=== PATIENT | female | born 1995 | race Caucasian/White ===

== ENCOUNTER 2019-02-27 11:23 | Emergency (ER) | payer MEDICAID ==
--- NOTE | 2019-02-27 11:33 | Emergency Department Report ---
Blank Doc - Documentation Documentation: This is a 23-year-old female that presents with URI symptoms. This initial assessment/diagnostic orders/clinical plan/treatment(s) is/are subject to change based on patient's health status, clinical progression and re- assessment by fellow clinical providers in the ED. Further treatment and workup at subsequent clinical providers discretion. Patient/guardians urged not to elope from the ED as their condition may be serious if not clinically assessed and managed. Initial orders include: 1- Patient sent to [facility] for further evaluation and treatment 2- CXR
[2019-02-27] MEDS ORDERED: SOLU-Medrol IM ONE (12:16)
[2019-02-27] MEDS ORDERED: PROVENTIL IH ONE (12:16)
--- NOTE | 2019-02-27 12:17 | Emergency Department Report ---
Minor Respiratory - HPI Chief Complaint: Upper Respiratory Infection Stated Complaint: CONGESTION/COUGH/ABD PAIN Time Seen by Provider: 02/27/19 11:32 Duration: 3 Days Pain Location: Chest Severity: mild Minor Respiratory: Yes Rhinorrhea, Yes Able to Tolerate Fluids, Yes Cough, No Sore Throat, No Ear Pain, No Sick Contacts, No Hemoptysis, No Chest Pain, No Shortness of Breath, No Fever Other History: She is 23-year-old female who comes into the ER with cough cold and congestion for 3 days. She reports fever at home but none in the ER ED Review of Systems ROS: Stated complaint: CONGESTION/COUGH/ABD PAIN Other details as noted in HPI Comment: All other systems reviewed and negative ED Past Medical Hx - Past Medical History Previous Medical History?: No Hx Hypertension: No Hx Heart Attack/AMI: No Hx Congestive Heart Failure: No Hx Diabetes: No Hx Deep Vein Thrombosis: No Hx Liver Disease: No Hx Renal Disease: No Hx Sickle Cell Disease: No Hx Seizures: No Hx Asthma: No Hx COPD: No Hx HIV: No - Surgical History Past Surgical History?: No - Family History Family history: no significant - Social History Smoking Status: Never Smoker Substance Use Type: None - Medications Home Medications: Home Medications Medication Instructions Recorded Confirmed Last Taken Type Vits96/Iron Fum/Folic 1 tab PO DAILY 06/21/14 03/20/16 08/25/14 08:00 History [ Tablet] Ferrous Sulfate [Feosol 325 MG tab] 325 mg PO TID PRN #120 tablet 08/27/14 03/20/16 Unknown Rx Ibuprofen [Motrin 600 MG tab] 600 mg PO Q6H PRN #30 tablet 08/27/14 03/20/16 Unknown Rx Docusate Sodium [Colace] 100 mg PO BID PRN #60 capsule 03/21/16 Unknown Rx Ferrous Sulfate [Feosol 325 MG tab] 325 mg PO TID #90 tablet 03/21/16 Unknown Rx Ibuprofen [Motrin 600 MG tab] 600 mg PO Q6HR PRN #30 tablet 03/21/16 Unknown Rx Vit-Fe Fumar-FA [ 1 each PO QDAY #30 tablet 03/21/16 Unknown Rx Vitamin] oxyCODONE /ACETAMINOPHEN [Percocet 1 tab PO Q6HR PRN #30 tablet 03/21/16 Unknown Rx 5/325] Azithromycin [Zithromax Z-BENEDICT] 250 mg PO DAILY #6 tablet 02/27/19 Unknown Rx Cetirizine HCl [ZyrTEC] 10 mg PO DAILY #30 capsule 02/27/19 Unknown Rx Fluticasone [Flonase] 1 spray NS QDAY #1 bottle 02/27/19 Unknown Rx predniSONE [Deltasone] 20 mg PO DAILY #5 tablet 02/27/19 Unknown Rx Minor Respiratory Exam - Exam General: Vital signs noted. No distress. Alert and acting appropriately. HEENT: Yes Pharyngeal Erythema, Yes Moist Mucous Membranes, Yes Rhinorrhea, No Pharyngeal Exudates, No Conjuctival Injection, No Frontal Tenderness, No Maxillary Tenderness Ear: Neither TM Bulge, Neither TM Erythema, Neither EAC Pain, Neither EAC Discharge Neck: Yes Supple, No Adenopathy Lungs: Yes Good Air Exchange, Yes Cough, No Wheezes, No Ronchi, No Stridor, No Labored Respirations, No Retractions, No Use of Accessory Muscles, No Other Abnormal Lung Sounds Heart: Yes Regular, No Murmur Abdomen: Yes Normal Bowel Sounds, No Tenderness, No Peritoneal Signs Skin: No Rash, No Edema Neurologic: Alert and oriented, no deficits. Musculoskeletal: Unremarkable. ED Course Vital Signs 02/27/19 11:32 Temperature 98.6 F Pulse Rate 105 H Respiratory 16 Rate Blood Pressure 134/86 O2 Sat by Pulse 97 Oximetry ED Medical Decision Making - Radiology Data Radiology results: report reviewed, image reviewed - Medical Decision Making xray without consolidation medicated in ER dc home with dc plan of care Lab Results 02/27/19 Range/Units 11:57 Urine Color Yellow (Yellow) Urine Turbidity Slightly-cloudy (Clear) Urine pH 6.0 (5.0-7.0) Ur Specific [place] 1.031 H (1.003-1.030) Urine Protein <15 mg/dl (Negative) mg/dL Urine Glucose (UA) Neg (Negative) mg/dL Urine Ketones Tr (Negative) mg/dL Urine Blood Neg (Negative) Urine Nitrite Neg (Negative) Urine Bilirubin Neg (Negative) Urine Urobilinogen 2.0 (<2.0) mg/dL Ur Leukocyte Esterase Neg (Negative) Urine WBC (Auto) < 1.0 (0.0-6.0) /HPF Urine RBC (Auto) 1.0 (0.0-6.0) /HPF U Epithel Cells (Auto) 2.0 (0-13.0) /HPF Urine HCG, Qual Negative (Negative) Vital Signs 02/27/19 02/27/19 02/27/19 11:32 13:46 14:24 Temperature 98.6 F Pulse Rate 105 H 114 H Pulse Rate [ 89 Bilateral] Respiratory 16 20 Rate Respiratory 20 Rate [Bilateral ] Blood Pressure 134/86 Blood Pressure 154/91 [Right] O2 Sat by Pulse 97 99 Oximetry Critical care attestation.: If time is entered above; I have spent that time in minutes in the direct care of this critically ill patient, excluding procedure time. ED Disposition Clinical Impression: URTI (acute upper respiratory infection), Bronchitis Disposition: TO HOME OR SELFCARE Is pt being admited?: No Does the pt Need Aspirin: No Condition: Stable Instructions: Upper Respiratory Infection (ED), Chronic Bronchitis (ED) Additional Instructions: DIET TOLERATED MEDS ORDERED TODAY IN ER FOLLOW INSTRUCTIONS ON THE BOTTLE FOLLOW UP PCP WITHIN 48 HOURS TO ENSURE YOU ARE GETTING BETTER ACTIVITY TOLERATED MOTRIN OR TYLENOL FOR PAIN OR FEVER RETURN TO THE ER FOR WORSENING SYMPTOMS NOT RELIEVED BY YOUR MEDICATIONS. Prescriptions: predniSONE [Deltasone] 20 mg PO DAILY #5 tablet Fluticasone [Flonase] 1 spray NS QDAY #1 bottle Azithromycin [Zithromax Z-BENEDICT] 250 mg PO DAILY #6 tablet Cetirizine HCl [ZyrTEC] 10 mg PO DAILY #30 capsule Referrals: [facility] [Other] - 3-5 Days Forms: Work/School Release Form(ED) Time of Disposition: 14:08
[2019-02-27 12:38] LABS: Bilirubin,Urine NEG (Negative); Blood,Urine NEG (Negative); Color,Urine Yellow (Yellow); Protein,Urine <15 mg/dL mg/dL (Negative)
[2019-02-27 12:41] LABS: WBC,Urine < 1.0 /HPF (0.0-6.0)
[2019-02-27 12:42] LABS: HCG Qualitative,Urine Negative (Negative)
--- NOTE | 2019-02-27 14:10 | XRay Report ---
CHEST 2 VIEWS INDICATION: Shortness of breath. COMPARISON: None similar. FINDINGS: PA and lateral chest radiographs demonstrate limited inspiration with mild exaggerated cardiomediastinal silhouette; slight cardiomegaly not entirely excluded. No pleural effusions or CHF. Intact bones. CONCLUSION: Suboptimal inspiration with exaggerated heart size, as described. Please correlate. Thank you for the opportunity to participate in this patient's care.
[2019-02-27 14:25] VITALS: BP 154/91
== END 2019-02-27 14:24 | disposition home or self-care (01) ==
LOC: ED 11:23
DX: J06.9 Acute upper respiratory infection, unspecified (principal); J40 Bronchitis, not specified as acute or chronic
CPT/HCPCS: 71046; 81001; 81025; 94640; 96372; 99284; J2930

== ENCOUNTER 2019-06-07 09:33 | Emergency (ER) | payer MEDICAID ==
[2019-06-07 09:46] VITALS: BP 129/86
[2019-06-07 10:16] LABS: Basophils # (Auto) 0.1 K/mm3 (0.0-0.1); Basophils % (Auto) 0.6 % (0.0-1.8); Eosinophils # (Auto) 0.1 K/mm3 (0.0-0.4); Eosinophils % (Auto) 1.3 % (0.0-4.3); Hemoglobin 13.6 gm/dl (10.1-14.3); Lymphocytes # (Auto) 2.3 K/mm3 (1.2-5.4); Lymphocytes % (Auto) 22.3 % (13.4-35.0); Mean Corpuscular HGB Conc 34 % (30-34); Mean Corpuscular Volume 90 fl (79-97); Monocytes # (Auto) 0.5 K/mm3 (0.0-0.8); Monocytes % (Auto) 4.9 % (0.0-7.3); Platelet Count 204 K/mm3 (140-440); Red Blood Count 4.45 M/mm3 (3.65-5.03); Red Cell Distribution Width 13.2 % (13.2-15.2)
[2019-06-07 10:27] LABS: Alanine Aminotransferase 28 units/L (7-56); Albumin 3.6 g/dL (3.9-5); BUN/Creatinine Ratio 23; Blood Urea Nitrogen 7 mg/dL (7-17); Calcium 8.7 mg/dL (8.4-10.2); Hemolysis Index 7
--- NOTE | 2019-06-07 11:26 | Emergency Department Report ---
HPI - General Chief Complaint: Abdominal Pain Time Seen by Provider: 06/07/19 11:07 - HPI HPI: 23-year-old female presents to the emergency department with a complaint of some lower abdominal pain, nausea and vomiting, while . The patient is about 17 weeks and with this she is . She denies any vaginal bleeding, dysuria, vaginal discharge. She has not taken anything for her symptoms prior to presentation. No recent travel or sick contacts. 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 ED Past Medical Hx - Past Medical History Hx Hypertension: No Hx Heart Attack/AMI: No Hx Congestive Heart Failure: No Hx Diabetes: No Hx Deep Vein Thrombosis: No Hx Liver Disease: No Hx Renal Disease: No Hx Sickle Cell Disease: No Hx Seizures: No Hx Asthma: No Hx COPD: No Hx HIV: No - Social History Smoking Status: Never Smoker Substance Use Type: None - Medications Home Medications: Home Medications Medication Instructions Recorded Confirmed Last Taken Type Vits96/Iron Fum/Folic 1 tab PO DAILY 06/21/14 03/20/16 08/25/14 08:00 History [ Tablet] Ferrous Sulfate [Feosol 325 MG tab] 325 mg PO TID PRN #120 tablet 08/27/14 03/20/16 Unknown Rx Ibuprofen [Motrin 600 MG tab] 600 mg PO Q6H PRN #30 tablet 08/27/14 03/20/16 Unknown Rx Docusate Sodium [Colace] 100 mg PO BID PRN #60 capsule 03/21/16 Unknown Rx Ferrous Sulfate [Feosol 325 MG tab] 325 mg PO TID #90 tablet 03/21/16 Unknown Rx Ibuprofen [Motrin 600 MG tab] 600 mg PO Q6HR PRN #30 tablet 03/21/16 Unknown Rx Vit-Fe Fumar-FA [ 1 each PO QDAY #30 tablet 03/21/16 Unknown Rx Vitamin] oxyCODONE /ACETAMINOPHEN [Percocet 1 tab PO Q6HR PRN #30 tablet 03/21/16 Unknown Rx 5/325] Azithromycin [Zithromax Z-BENEDICT] 250 mg PO DAILY #6 tablet 02/27/19 Unknown Rx Cetirizine HCl [ZyrTEC] 10 mg PO DAILY #30 capsule 02/27/19 Unknown Rx Fluticasone [Flonase] 1 spray NS QDAY #1 bottle 02/27/19 Unknown Rx predniSONE [Deltasone] 20 mg PO DAILY #5 tablet 02/27/19 Unknown Rx ED Review of Systems ROS: Stated complaint: 17WKS /VOMITING/STOMACH PAIN Other details as noted in HPI Comment: All other systems reviewed and negative Constitutional: denies: chills, fever Respiratory: denies: cough, shortness of breath Cardiovascular: denies: chest pain, palpitations Gastrointestinal: abdominal pain, nausea, vomiting Genitourinary: denies: dysuria, discharge Musculoskeletal: denies: back pain, joint swelling Skin: denies: rash, lesions Neurological: denies: headache, weakness Physical Exam - Physical Exam Vital Signs: Vital Signs 06/07/19 09:45 Temperature 98.3 F Pulse Rate 96 H Respiratory 18 Rate Blood Pressure 129/86 O2 Sat by Pulse 97 Oximetry Physical Exam: GENERAL: The patient is well-developed well-nourished. HENT: Normocephalic. Atraumatic. Patient has moist mucous membranes. EYES: Extraocular motions are intact. NECK: Supple. Trachea is midline. CHEST/LUNGS: Clear to auscultation. There is no respiratory distress noted. HEART/CARDIOVASCULAR: Regular. There is no tachycardia. There is no murmur. ABDOMEN: Abdomen is soft. Mild lower abdominal tenderness to palpation. No guarding. Patient has normal bowel sounds. SKIN: Skin is warm and dry. NEURO: The patient is awake, alert, and oriented. The patient is cooperative. The patient has no focal neurologic deficits. The patient has normal speech. MUSCULOSKELETAL: There is no tenderness or deformity. There is no evidence of acute injury. ED Course Vital Signs 06/07/19 09:45 Temperature 98.3 F Pulse Rate 96 H Respiratory 18 Rate Blood Pressure 129/86 O2 Sat by Pulse 97 Oximetry ED Medical Decision Making - Lab Data Result diagrams: 06/07/19 09:57 06/07/19 09:57 - Radiology Data Radiology results: report reviewed OB ULTRASOUND >= 14 WEEKS FETUS INDICATION: Abdominal pain during TECHNIQUE: Transabdominal ultrasound imaging. COMPARISON: None FINDINGS: A single gestation intrauterine is present with breech presentation. The placenta is posterior, grade 1 and free of the cervical os. heart tones measure 147 bpm. Amniotic fluid volume is qualitatively normal. SHABBIR was not measured. anatomical survey was not performed. Biparietal diameter is 3.4 cm which equals 16 weeks 3 days. Head circumference is 14.0 cm which equals 17 weeks 2 days. Abdominal circumference is 11.1 cm which equals 17 weeks 0 days. Femur length is 2.5 cm which equals 17 weeks 4 days. Overall estimated sonographic age is 17 weeks 1 day. EDC: 11/14/2019. HC/AC ratio: 1.25 Cephalic index: 76.6 Estimated weight 188 g +/- 20 8 g. 34th percentile. Additional findings: Multiple shadowing gallstones are noted in the gallbladder. No abnormal dilatation. IMPRESSION: Viable, single intrauterine as outlined above. No acute abnormality is identified. Incidental finding of gallstones. - Medical Decision Making This patient presents to the emergency department with some lower abdominal discomfort, nausea and vomiting while . Labs have been unremarkable including CBC, metabolic panel and urinalysis. The obstetric ultrasound came back showing a live intrauterine at about 17 weeks. There is also be incidental finding of gallstones. While I do not believe that the gallstones are the cause of her lower abdominal pain, it is a possibility, and it certainly can add to her nausea and vomiting. She was given a dose of Reglan which she took orally and was able to keep down. There has been no further signs of vomiting while in the emergency department. No signs of any significant clinical dehydration on examination or with her labs. She was able to pass an oral challenge. For all these reasons, the patient appears safe for discharge home with son. 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 - Differential Diagnosis , hyperemesis gravidarum, UTI, fibroids Critical Care Time: No Critical care attestation.: If time is entered above; I have spent that time in minutes in the direct care of this critically ill patient, excluding procedure time. ED Disposition Clinical Impression: Qualifiers: Weeks of gestation: 17 weeks Qualified Code(s): Z3A.17 - 17 weeks gestation of Nausea & vomiting Qualifiers: Vomiting type: unspecified Vomiting Intractability: non-intractable Qualified Code(s): R11.2 - Nausea with vomiting, unspecified Abdominal pain during Qualifiers: Trimester: second trimester Qualified Code(s): O26.892 - Other specified related conditions, second trimester Cholelithiasis Qualifiers: Cholelithiasis location: gallbladder Cholecystitis presence: without cholecystitis Biliary obstruction: without biliary obstruction Qualified Code(s): K80.20 - Calculus of gallbladder without cholecystitis without obstruction Disposition: TO HOME OR SELFCARE Is pt being admited?: No Condition: Stable Instructions: (ED), Cholelithiasis (ED), Acute Nausea and Vomiting (ED), Abdominal Pain (ED) Additional Instructions: Please follow-up with your primary care physician and INSTRUMENT ENGINEER in the next few day s. Increase your oral rehydration. Return to the emergency Department with any worsening of her symptoms, development of any vaginal bleeding, new or sharp abdominal or pelvic pains, inability to stay hydrated secondary to vomiting, with any acute distress. Referrals: DEVAN JOHN MD [Primary Care Provider] - 2-3 Days [facility] [Provider Group] - 2-3 Days Forms: Work/School Release Form(ED) Time of Disposition: 13:05
[2019-06-07] MEDS ORDERED: REGLAN PO ONE (11:39)
[2019-06-07 12:15] LABS: Bilirubin,Urine NEG (Negative); Blood,Urine NEG (Negative); Color,Urine Yellow (Yellow); Mucus,Urine FEW /HPF; Protein,Urine <15 mg/dL mg/dL (Negative); Urobilinogen,Urine < 2.0 mg/dL (<2.0)
--- NOTE | 2019-06-07 12:19 | Ultrasound Report ---
OB ULTRASOUND >= 14 WEEKS FETUS INDICATION: Abdominal pain during TECHNIQUE: Transabdominal ultrasound imaging. COMPARISON: None FINDINGS: A single gestation intrauterine is present with breech presentation. The placenta is engineering technical writer ior, grade 1 and free of the cervical os. heart tones measure 147 bpm. Amniotic fluid volume is qualitatively normal. SHABBIR was not measured. anatomical survey was not performed. Biparietal diameter is 3.4 cm which equals 16 weeks 3 days. Head circumference is 14.0 cm which equals 17 weeks 2 days. Abdominal circumference is 11.1 cm which equals 17 weeks 0 days. Femur length is 2.5 cm which equals 17 weeks 4 days. Overall estimated sonographic age is 17 weeks 1 day. EDC: 11/14/2019. HC/AC ratio: 1.25 Cephalic index: 76.6 Estimated weight 188 g +/- 20 8 g. 34th percentile. Additional findings: Multiple shadowing gallstones are noted in the gallbladder. No abnormal dilatati on. IMPRESSION: Viable, single intrauterine as outlined above. No acute abnormality is identified. Incidental finding of gallstones. Signer Name: Misael Bella Jr, MD Signed: 06/07/2019 12:15 PM Workstation Name: [id number]
== END 2019-06-07 13:23 | disposition home or self-care (01) ==
LOC: ED 09:33
DX: O99.612 Diseases of the digestive system complicating pregnancy, second trimester (principal); K80.20 Calculus of gallbladder without cholecystitis without obstruction; O21.8 Other vomiting complicating pregnancy; Z3A.17 17 weeks gestation of pregnancy; Z79.899 Other long term (current) drug therapy
CPT/HCPCS: 36415; 76805; 80053; 81001; 84702; 85025; 99284

== ENCOUNTER 2019-08-23 19:46 | Outpatient (CLI) | payer MEDICAID ==
[2019-08-23] MEDS ORDERED: LACTATED RINGERS 500 ML IV ONE (20:12)
[2019-08-23] MEDS ORDERED: ONDANSETRON 4 MG/2 ML INJ IV STA (20:42)
[2019-08-23 20:51] VITALS: BP 115/81
[2019-08-23] MEDS ORDERED: FAMOTIDINE 20 MG/2 ML INJ IV STA (21:27)
== END 2019-08-23 22:15 | disposition home or self-care (01) ==
LOC: TRG 19:46
PROVIDERS: ATTEND Obstetrics & Gynecology
DX: O21.2 Late vomiting of pregnancy (principal); O26.893 Other specified pregnancy related conditions, third trimester; R10.9 Unspecified abdominal pain; Z3A.28 28 weeks gestation of pregnancy
CPT/HCPCS: 59025; 96374; 96375; J2405; J7120; 96360

== ENCOUNTER 2019-10-04 10:25 | Outpatient (CLI) | payer MEDICAID ==
[2019-10-04] MEDS ORDERED: LACTATED RINGERS 1,000 ML IV SCH (12:00)
[2019-10-04 12:09] LABS: Hematocrit 32.5 % (30.3-42.9); Hemoglobin 10.9 gm/dl (10.1-14.3); Mean Corpuscular HGB Conc 33 % (30-34); Mean Corpuscular Volume 80 fl (79-97); Platelet Count 254 K/mm3 (140-440); Red Blood Count 4.08 M/mm3 (3.65-5.03); Red Cell Distribution Width 15.5 % (13.2-15.2)
[2019-10-04] MEDS ORDERED: ONDANSETRON 4 MG/2 ML INJ IV ONE (12:14)
[2019-10-04 12:30] LABS: Alanine Aminotransferase 10 units/L (7-56); Uric Acid 4.4 mg/dL (3.5-7.6)
[2019-10-04] MEDS ORDERED: D5W/LACTATED RINGERS 1,000 ML IV SCH (13:00)
[2019-10-04 13:33] LABS: Bacteria,Urine 1+ /HPF (Negative); Bilirubin,Urine NEG (Negative); Blood,Urine SM (Negative); Color,Urine Straw (Yellow); Protein,Urine <15 mg/dL mg/dL (Negative); Urobilinogen,Urine < 2.0 mg/dL (<2.0)
[2019-10-04 13:45] VITALS: BP 121/67
== END 2019-10-04 15:21 | disposition home or self-care (01) ==
LOC: TRG 10:25
PROVIDERS: ATTEND Obstetrics & Gynecology
DX: O21.2 Late vomiting of pregnancy (principal); O26.893 Other specified pregnancy related conditions, third trimester; R19.7 Diarrhea, unspecified; O47.03 False labor before 37 completed weeks of gestation, third trimester; Z3A.34 34 weeks gestation of pregnancy
CPT/HCPCS: 36415; 59025; 81001; 82565; 83615; 84450; 84460; 84550; 85027; 96361; 96374; J2405; J7120; J7121; 96360

== ENCOUNTER 2019-10-15 12:55 | Inpatient (IN) | payer MEDICAID ==
--- NOTE | 2019-10-15 14:28 | Ultrasound Report ---
Biophysical profile INDICATION: Decreased movement COMPARISON: None FINDINGS: breathing movement: 0/2 movement: 0/2 posture and tone: 2/2 Qualitative amniotic fluid volume: 2/2 IMPRESSION: Total score for biophysical profile is 4/8 heart rate is 144 bpm Signer Name: Bennett Helm MD Signed: 10/15/2019 2:23 PM Workstation Name: [id number]
[2019-10-15] MEDS ORDERED: LACTATED RINGERS 1,000 ML ONE (14:52)
[2019-10-15] MEDS ORDERED: MINERAL OIL 30 ML ORAL LIQD PO PRN (15:13)
[2019-10-15] MEDS ORDERED: ePHEDrine SULFATE 50 MG/1 ML INJ IV PRN (15:13)
[2019-10-15] MEDS ORDERED: TERBUTALINE 1 MG/1 ML INJ IVP PRN (15:13)
[2019-10-15] MEDS ORDERED: TERBUTALINE 1 MG/1 ML INJ SUB-Q PRN (15:13)
[2019-10-15] MEDS ORDERED: LIDOCAINE (2%) 20 MG/1 ML VIAL 20 ML MDV INFILTRATI ONE (15:13)
[2019-10-15 15:59] LABS: Hematocrit 32.8 % (30.3-42.9); Hemoglobin 10.7 gm/dl (10.1-14.3); Mean Corpuscular HGB Conc 33 % (30-34); Mean Corpuscular Volume 78 fl (79-97); Platelet Count 263 K/mm3 (140-440); Red Cell Distribution Width 16.3 % (13.2-15.2)
[2019-10-15] MEDS ORDERED: OXYTOCIN 20 UNIT/1000ML DRIP 20 UNITS/1,000 ML BAG IV SCH (16:00)
[2019-10-15] MEDS: BETAMET ACET/BETAMET NA PH 6 MG/ML INJ 5 ML MDV IM SCH (16:34)
--- NOTE | 2019-10-15 19:52 | History and Physical Report ---
History of Present Illness Date of examination: 10/15/19 Date of admission: 10/15/19 12:56 Chief complaint: decreased movement History of present illness: Pt is a 24 year old KATINA 11/12/19 at 36w0d presents with complaint of decreased movement since last night. She denies vaginal bleeding or leakage of fluid. She has had care at [facility] [facility] with comanagement by [facility] since 13 wks complicated by morbid obesity, cholelithiasis, h/o gestational hypertension on low dose aspirin daily. Her GBS status is unknown. Past History Past Medical History: no pertinent history Past Surgical History: no surgical history POLE CLIMBER History: abnormal PAP smear Family/Genetic History: diabetes Social history: no significant social history - Obstetrical History Expected Date of Delivery: 11/12/19 Actual Gestation: 36 Week(s) 0 Day(s) : 4 Para: 3 Hx # Term Pregnancies: 3 Number of Pregnancies: 0 Spontaneous Abortions: 0 Induced : 0 Number of Living Children: 3 Medications and Allergies Allergies Allergy/AdvReac Type Severity Reaction Status Date / Time No Known Allergies Allergy Verified 06/07/19 09:34 Home Medications Medication Instructions Recorded Confirmed Last Taken Type Vits96/Iron Fum/Folic 1 tab PO DAILY 06/21/14 03/20/16 08/25/14 08:00 History [ Tablet] Ferrous Sulfate [Feosol 325 MG tab] 325 mg PO TID PRN #120 tablet 08/27/14 03/20/16 Unknown Rx Ibuprofen [Motrin 600 MG tab] 600 mg PO Q6H PRN #30 tablet 08/27/14 03/20/16 Unknown Rx Docusate Sodium [Colace] 100 mg PO BID PRN #60 capsule 03/21/16 Unknown Rx Ferrous Sulfate [Feosol 325 MG tab] 325 mg PO TID #90 tablet 03/21/16 Unknown Rx Ibuprofen [Motrin 600 MG tab] 600 mg PO Q6HR PRN #30 tablet 03/21/16 Unknown Rx Vit-Fe Fumar-FA [ 1 each PO QDAY #30 tablet 03/21/16 Unknown Rx Vitamin] oxyCODONE /ACETAMINOPHEN [Percocet 1 tab PO Q6HR PRN #30 tablet 03/21/16 Unknown Rx 5/325] Azithromycin [Zithromax Z-BENEDICT] 250 mg PO DAILY #6 tablet 02/27/19 Unknown Rx Cetirizine HCl [ZyrTEC] 10 mg PO DAILY #30 capsule 02/27/19 Unknown Rx Fluticasone [Flonase] 1 spray NS QDAY #1 bottle 02/27/19 Unknown Rx predniSONE [Deltasone] 20 mg PO DAILY #5 tablet 02/27/19 Unknown Rx Active Meds: Active Medications Betamethasone Acet/Betameth SodPhos (Celestone Soluspan) 12 mg IM Q24H KEYONA Stop: 10/16/19 16:01 Last Admin: 10/15/19 16:34 Dose: 12 mg Documented by: Ephedrine Sulfate (Ephedrine Sulfate) 10 mg IV Q2M PRN PRN Reason: Hypotension Oxytocin/Sodium Chloride (Pitocin/Ns 20 Unit/1000ml Drip) 20 units in 1,000 mls @ 125 mls/hr IV DIRECT KEYONA Lactated Ringer's (Lactated Ringers) 1,000 mls @ 125 mls/hr IV DIRECT KEYONA Mineral Oil (Mineral Oil) 30 ml PO QHS PRN PRN Reason: Constipation Terbutaline Sulfate (Brethine) 0.25 mg SUB-Q ONCE PRN PRN Reason: Hyperstimulation/Hypertonicity Terbutaline Sulfate (Brethine) 0.25 mg IVP ONCE PRN PRN Reason: Hyperstimulation/Hypertonicity Review of Systems All systems: negative - Vital Signs Vital signs: Vital Signs Pulse Pulse Ox 123 H 99 10/15/19 13:07 10/15/19 13:07 Temp Pulse Resp BP Pulse Ox 98.2 F 103 H 12 130/76 96 10/15/19 13:14 10/15/19 19:46 10/15/19 19:20 10/15/19 19:22 10/15/19 19:46 - Physical Exam Breasts: Positive: deferred Cardiovascular: Regular rate Lungs: Positive: Clear to auscultation Abdomen: Positive: soft (obese, gravid) Uterus: Positive: enlarged (gravid ) Extremities: Positive: edema (trace) - Obstetrical FHR: auscultation normal Cervical Dilatation: 1 Cervical Effacement Percentage: 40 station: -4 Uterine Contraction Pattern: Absent Uterine Tone Measurement Phase: Resting Results Result Diagrams: 10/15/19 15:20 Abnormal lab results 10/15/19 Range/Units 15:20 WBC 11.3 H (4.5-11.0) K/mm3 MCV 78 L (79-97) fl MCH 26 L (28-32) pg RDW 16.3 H (13.2-15.2) % All other labs normal. Assessment and Plan A: IUP at 36w0d Decreased movement BPP 02/04 (04/08 with NST) Gestational HTN Cholelithiasis Morbid Obesity GBS Unknown P: Admit to antepartum service Continuous monitoring Repeat BPP in 24 hrs per MFM director of alumni relations MFM consult in AM Betamethasone course
[2019-10-15] MEDS: LACTATED RINGERS 1,000 ML IV SCH (22:27)
[2019-10-16] MEDS: LACTATED RINGERS 1,000 ML IV SCH ×2 (06:24→14:49)
--- NOTE | 2019-10-16 08:21 | Progress Note ---
Assessment and Plan A: IUP at 36w1d Decreased movement BPP 02/04 (04/08 with NST) Gestational HTN Cholelithiasis Morbid Obesity GBS Unknown P: Continuous monitoring Repeat BPP today by 1p MFM consult in AM Betamethasone course Subjective - Subjective Date of service: 10/16/19 Principal diagnosis: Decreased movement Patient reports: movement normal, no new complaints, no loss of fluid, no vaginal bleeding, no contractions Objective - Vital Signs Vital Signs: Vital Signs - 12hr 10/16/19 08:17 Temperature 98.6 F Pulse Rate 100 H Respiratory 18 Rate Blood Pressure 124/82 Blood Pressure 124/82 [Right] O2 Sat by Pulse 97 Oximetry - Exam Breasts: normal Cardiovascular: Regular rate, Normal S1 Lungs: Clear to auscultation, Normal air movement Abdomen: Present: normal appearance, soft, normal bowel sounds. Absent: distention, tenderness, guarding Vulva: both: normal Uterus: Present: normal, firm. Absent: bogginess, tenderness FHR: category 1 - Labs Labs: Abnormal Labs 10/15/19 15:20 WBC 11.3 H MCV 78 L MCH 26 L RDW 16.3 H Laboratory Results - last 24 hr 10/15/19 10/15/19 15:20 15:20 WBC 11.3 H RBC 4.20 Hgb 10.7 Hct 32.8 MCV 78 L MCH 26 L MCHC 33 RDW 16.3 H Plt Count 263 Blood Type AB POSITIVE Antibody Screen Negative
--- NOTE | 2019-10-16 08:45 | Consultation ---
History of Present Illness Reason for consult: other (Pt is a 24 year old KATINA 11/[birth year]/19 at 36w1d on 10/15/19 complained of decreased movement since last night. She denies vaginal bleeding or leakage of fluid. Followed by [facility] since 13 wks complicated by morbid obesity, cholelithiasis, concern for gestational hypertension on low dose aspirin daily. 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 Family/Genetic History: diabetes - Obstetrical History : 4 Medications and Allergies Allergies Allergy/AdvReac Type Severity Reaction Status Date / Time No Known Allergies Allergy Verified 06/07/19 09:34 Home Medications Medication Instructions Recorded Confirmed Last Taken Type Vits96/Iron Fum/Folic 1 tab PO DAILY 06/21/14 03/20/16 08/25/14 08:00 History [ Tablet] Ferrous Sulfate [Feosol 325 MG tab] 325 mg PO TID PRN #120 tablet 08/27/14 03/20/16 Unknown Rx Ibuprofen [Motrin 600 MG tab] 600 mg PO Q6H PRN #30 tablet 08/27/14 03/20/16 Unknown Rx Docusate Sodium [Colace] 100 mg PO BID PRN #60 capsule 03/21/16 Unknown Rx Ferrous Sulfate [Feosol 325 MG tab] 325 mg PO TID #90 tablet 03/21/16 Unknown Rx Ibuprofen [Motrin 600 MG tab] 600 mg PO Q6HR PRN #30 tablet 03/21/16 Unknown Rx Vit-Fe Fumar-FA [ 1 each PO QDAY #30 tablet 03/21/16 Unknown Rx Vitamin] oxyCODONE /ACETAMINOPHEN [Percocet 1 tab PO Q6HR PRN #30 tablet 03/21/16 Unknown Rx 5/325] Azithromycin [Zithromax Z-BENEDICT] 250 mg PO DAILY #6 tablet 02/27/19 Unknown Rx Cetirizine HCl [ZyrTEC] 10 mg PO DAILY #30 capsule 02/27/19 Unknown Rx Fluticasone [Flonase] 1 spray NS QDAY #1 bottle 02/27/19 Unknown Rx predniSONE [Deltasone] 20 mg PO DAILY #5 tablet 02/27/19 Unknown Rx Active Meds: Active Medications Betamethasone Acet/Betameth SodPhos (Celestone Soluspan) 12 mg IM Q24H KEYONA Stop: 10/16/19 16:01 Last Admin: 10/15/19 16:34 Dose: 12 mg Documented by: Ephedrine Sulfate (Ephedrine Sulfate) 10 mg IV Q2M PRN PRN Reason: Hypotension Oxytocin/Sodium Chloride (Pitocin/Ns 20 Unit/1000ml Drip) 20 units in 1,000 mls @ 125 mls/hr IV DIRECT KEYONA Lactated Ringer's (Lactated Ringers) 1,000 mls @ 125 mls/hr IV DIRECT KEYONA Last Admin: 10/16/19 06:24 Dose: 125 mls/hr Documented by: Mineral Oil (Mineral Oil) 30 ml PO QHS PRN PRN Reason: Constipation Terbutaline Sulfate (Brethine) 0.25 mg SUB-Q ONCE PRN PRN Reason: Hyperstimulation/Hypertonicity Terbutaline Sulfate (Brethine) 0.25 mg IVP ONCE PRN PRN Reason: Hyperstimulation/Hypertonicity Review of Systems Constitutional: no fever, no chills Eyes: no blurred vision Ears, nose, mouth and throat: no headache Cardiovascular: other (GHTN ), no rapid/irregular heart beat, no shortness of breath Respiratory: no dyspnea on exertion Breasts: deferred Gastrointestinal: other (Dx with cholelithiasis during this previously evaluated by Surgeon . Follow up Surgeon PP ), no abdominal pain, no nausea, no vomiting Genitourinary: contractions (reports occasional contractions ), no vaginal bl eeding, no vaginal discharge, no pelvic pain Integumentary: no rash Neurological: no seizures Endocrine: other (BMZ for FLM in progress) Hematologic/Lymphatic: no easy bruising - Vital Signs Vital signs: Vital Signs Pulse Pulse Ox 123 H 99 10/15/19 13:07 10/15/19 13:07 Temp Pulse Resp BP Pulse Ox 98.6 F 100 H 18 124/82 97 10/16/19 08:17 10/16/19 08:17 10/16/19 08:17 10/16/19 08:17 10/16/19 08:17 - Physical Exam Breasts: Positive: deferred Cardiovascular: Regular rate Lungs: Positive: Normal air movement Abdomen: Positive: other (Gravid). Negative: tenderness, guarding Uterus: Negative: tender Extremities: Positive: edema (trace ) Deep Tendon Reflex Grade: Normal +2 - Obstetrical FHR: category 1 Uterine Contraction Monitor Mode: External Uterine Contraction Pattern: Absent Results Result Diagrams: 10/15/19 15:20 Abnormal lab results 10/15/19 Range/Units 15:20 WBC 11.3 H (4.5-11.0) K/mm3 MCV 78 L (79-97) fl MCH 26 L (28-32) pg RDW 16.3 H (13.2-15.2) % All other labs normal. Ultrasound: report reviewed (See [facility] chart for full report BPP 02/04 ( -2 for breathing and -2 movement ) FHT of 144) Assessment and Plan A: IUP at 36w1d Reported Decreased movement on 10/16/19 -reports positive FM during today's consult -10/16/19 AM Reactive NST was noted [facility] 10/16/19 BPP 4/8 (6/10 with NST) - 2 for FM and -2 for breathing Gestational HTN - stable BP of 124/82 with NO MALT ROASTER features Cholelithiasis during this - previously declined surgical management - denies N/V ; back pain; and shoulder pain Morbid Obesity GBS Unknown P: Continue current management Continuous monitoring Repeat BPP inc SHABBIR assessment with doppler study per [facility] credit control manager Kindly obtain serum LFT Document baseline PIH labs inc 24 hr urine Complete Betamethasone course After repeat BPP with Doppler Consideration for discharge with close supervision with no /maternal compromise , reassuring BPP : 06/06/ / reassuring Doppler study / stable BP/stable labs no cervical changes With any further recommendations or concerns OB is to contact credit control manager [facility] provider Dr Bautista directly
--- NOTE | 2019-10-16 14:06 | Ultrasound Report ---
BPP and umbilical arterial Ultrasound HISTORY: decreased movement. TECHNIQUE: Grayscale and color Doppler imaging performed. COMPARISON: OB ultrasound from yesterday FINDINGS: BPP: Fetus received a score of 2 out of 2 for breathing movement, movement, posture/tone, and SHABBIR. To rob score was 8 out of 8. Heart rate was 126 bpm. Umbilical arterial ultrasound: Heart rate was 121 bpm during this exam. 3 separate free loop segments were evaluated and the following was determined: Systolic to diastolic ratio average was 2.8 which i s normal. Normal persistent waveform. Resistive index average was 0.65 which is normal. There was a n ormal persistent waveform. IMPRESSION: 1. Normal BPP with score of 8 out of 8. 2. Normal umbilical arterial ultrasound. Signer Name: Marino Eng MD Signed: 10/16/2019 2:01 PM Workstation Name: [id number]
[2019-10-16 15:44] LABS: Alanine Aminotransferase 10 units/L (7-56); Albumin 3.3 g/dL (3.9-5)
[2019-10-16 15:51] LABS: Bilirubin,Direct < 0.2 mg/dL (0-0.2)
[2019-10-16] MEDS: BETAMET ACET/BETAMET NA PH 6 MG/ML INJ 5 ML MDV IM SCH (17:04)
[2019-10-16 17:41] LABS: Bilirubin,Urine NEG (Negative); Blood,Urine NEG (Negative); Color,Urine Straw (Yellow); Protein,Urine <15 mg/dL mg/dL (Negative); RBC,Urine < 1.0 /HPF (0.0-6.0); Urobilinogen,Urine < 2.0 mg/dL (<2.0); WBC,Urine < 1.0 /HPF (0.0-6.0)
[2019-10-16 20:06] LABS: Alanine Aminotransferase 10 units/L (7-56); Uric Acid 4.7 mg/dL (3.5-7.6)
[2019-10-16 20:07] LABS: Hematocrit 30.7 % (30.3-42.9); Hemoglobin 10.1 gm/dl (10.1-14.3); Mean Corpuscular HGB Conc 33 % (30-34); Mean Corpuscular Volume 80 fl (79-97); Platelet Count 255 K/mm3 (140-440); Red Blood Count 3.86 M/mm3 (3.65-5.03); Red Cell Distribution Width 16.2 % (13.2-15.2)
[2019-10-17] MEDS ORDERED: diphenhydrAMINE 50 MG/ML VIAL IV PRN (00:28)
[2019-10-17] MEDS: LACTATED RINGERS 1,000 ML IV SCH (06:02)
[2019-10-17 07:43] VITALS: BP 123/71
--- NOTE | 2019-10-17 09:12 | Progress Note ---
Assessment and Plan A: IUP at 36w2d Decreased movement BPP 02/04 (04/08 with NST) Gestational HTN Cholelithiasis Morbid Obesity GBS Unknown P: Continuous monitoring Repeat BPP today Appreciate MFM consult s/p Betamethasone course await recommendations from MFM of disposition Subjective - Subjective Date of service: 10/17/19 Principal diagnosis: Decreased movement Patient reports: movement normal, no new complaints, no loss of fluid, no vaginal bleeding, no contractions Objective - Vital Signs Vital Signs: Vital Signs - 12hr 10/16/19 10/16/19 10/16/19 22:37 22:42 22:47 Temperature Pulse Rate 89 93 H 89 Respiratory Rate Blood Pressure Blood Pressure [Right] O2 Sat by Pulse 94 95 96 Oximetry 10/16/19 10/16/19 10/16/19 22:52 22:57 22:58 Temperature Pulse Rate 97 H 91 H 100 H Respiratory Rate Blood Pressure Blood Pressure [Right] O2 Sat by Pulse 95 96 94 Oximetry 10/16/19 10/17/19 10/17/19 23:02 00:33 01:00 Temperature 98.8 F Pulse Rate 99 H 103 H Respiratory 14 Rate Blood Pressure 130/65 Blood Pressure [Right] O2 Sat by Pulse 94 Oximetry 10/17/19 10/17/19 10/17/19 01:32 02:32 05:56 Temperature Pulse Rate 108 H 111 H 81 Respiratory Rate Blood Pressure 115/67 115/65 119/65 Blood Pressure [Right] O2 Sat by Pulse 92 Oximetry 10/17/19 10/17/19 10/17/19 06:01 06:03 06:05 Temperature 98.8 F Pulse Rate 84 84 Respiratory 14 Rate Blood Pressure Blood Pressure [Right] O2 Sat by Pulse 93 94 Oximetry 10/17/19 10/17/19 10/17/19 06:06 06:11 06:16 Temperature Pulse Rate 87 86 85 Respiratory Rate Blood Pressure Blood Pressure [Right] O2 Sat by Pulse 93 94 94 Oximetry 10/17/19 10/17/19 10/17/19 06:21 06:26 06:28 Temperature Pulse Rate 92 H 89 78 Respiratory Rate Blood Pressure Blood Pressure [Right] O2 Sat by Pulse 92 96 92 Oximetry 10/17/19 10/17/19 10/17/19 06:31 06:32 06:33 Temperature Pulse Rate 85 99 H 82 Respiratory Rate Blood Pressure 121/68 Blood Pressure [Right] O2 Sat by Pulse 94 93 Oximetry 10/17/19 10/17/19 10/17/19 06:36 06:39 06:41 Temperature Pulse Rate 80 81 84 Respiratory Rate Blood Pressure Blood Pressure [Right] O2 Sat by Pulse 93 92 95 Oximetry 10/17/19 10/17/19 10/17/19 06:44 06:46 06:50 Temperature Pulse Rate 86 78 88 Respiratory Rate Blood Pressure Blood Pressure [Right] O2 Sat by Pulse 94 96 93 Oximetry 10/17/19 10/17/19 10/17/19 06:51 06:55 06:56 Temperature Pulse Rate 84 87 88 Respiratory Rate Blood Pressure Blood Pressure [Right] O2 Sat by Pulse 97 94 92 Oximetry 10/17/19 10/17/19 10/17/19 07:00 07:01 07:06 Temperature Pulse Rate 78 78 95 H Respiratory Rate Blood Pressure Blood Pressure [Right] O2 Sat by Pulse 93 92 96 Oximetry 10/17/19 10/17/19 10/17/19 07:11 07:43 07:44 Temperature 97.8 F Pulse Rate 90 86 89 Respiratory 18 Rate Blood Pressure 123/71 Blood Pressure 123/71 [Right] O2 Sat by Pulse 96 95 96 Oximetry - Exam Breasts: normal Cardiovascular: Regular rate, Normal S1 Lungs: Clear to auscultation, Normal air movement Abdomen: Present: normal appearance, soft, normal bowel sounds. Absent: distention, tenderness, guarding Uterus: Present: normal, firm, fundal height below umbilicus. Absent: bogginess, tenderness FHR: auscultation normal Extremities: normal Deep Tendon Reflex Grade: Normal +2 - Labs Labs: Abnormal Labs 10/15/19 10/16/19 10/16/19 15:20 15:03 19:05 WBC 11.3 H MCV 78 L MCH 26 L 26 L RDW 16.3 H 16.2 H Creatinine Lactate Dehydrogenase Total Protein 6.0 L Albumin 3.3 L 10/16/19 19:05 WBC MCV MCH RDW Creatinine 0.4 L Lactate Dehydrogenase 187 H Total Protein Albumin Laboratory Results - last 24 hr 10/16/19 10/16/19 10/16/19 15:03 17:25 19:05 WBC 9.2 RBC 3.86 Hgb 10.1 Hct 30.7 MCV 80 MCH 26 L MCHC 33 RDW 16.2 H Plt Count 255 Creatinine Estimated GFR Uric Acid Total Bilirubin 0.20 Direct Bilirubin < 0.2 Indirect Bilirubin 0.0 AST 14 ALT 10 Alkaline Phosphatase 128 Lactate Dehydrogenase Total Protein 6.0 L Albumin 3.3 L Albumin/Globulin Ratio 1.2 Urine Color Straw Urine Turbidity Clear Urine pH 7.0 Ur Specific [place] 1.005 Urine Protein <15 mg/dl Urine Glucose (UA) Neg Urine Ketones Neg Urine Blood Neg Urine Nitrite Neg Urine Bilirubin Neg Urine Urobilinogen < 2.0 Ur Leukocyte Esterase Neg Urine WBC (Auto) < 1.0 Urine RBC (Auto) < 1.0 U Epithel Cells (Auto) 2.0 10/16/19 19:05 WBC RBC Hgb Hct MCV MCH MCHC RDW Plt Count Creatinine 0.4 L Estimated GFR > 60 Uric Acid 4.7 Total Bilirubin Direct Bilirubin Indirect Bilirubin AST 15 ALT 10 Alkaline Phosphatase Lactate Dehydrogenase 187 H Total Protein Albumin Albumin/Globulin Ratio Urine Color Urine Turbidity Urine pH Ur Specific [place] Urine Protein Urine Glucose (UA) Urine Ketones Urine Blood Urine Nitrite Urine Bilirubin Urine Urobilinogen Ur Leukocyte Esterase Urine WBC (Auto) Urine RBC (Auto) U Epithel Cells (Auto)
== END 2019-10-17 11:05 | disposition home or self-care (01) | DRG 781 ==
LOC: TRG 12:55 → LD 12:56 → TRG 12:56
PROVIDERS: ADMIT Obstetrics & Gynecology; ATTEND Obstetrics & Gynecology
DX: O36.8130 Decreased fetal movements, third trimester, not applicable or unspecified (principal); O99.613 Diseases of the digestive system complicating pregnancy, third trimester; O99.213 Obesity complicating pregnancy, third trimester; O13.3 Gestational [pregnancy-induced] hypertension without significant proteinuria, third trimester; K80.20 Calculus of gallbladder without cholecystitis without obstruction; Z3A.36 36 weeks gestation of pregnancy; Z83.3 Family history of diabetes mellitus; Z79.899 Other long term (current) drug therapy
CPT/HCPCS: 36415; 76819; 76820; 80076; 81001; 82565; 83615; 84450; 84460; 84550; 85027; 86850; 86900; 86901; G0378; J0702; J1200; J7120

== ENCOUNTER 2019-10-18 08:30 | Outpatient (CLI) | payer MEDICAID | END 2019-10-18 08:31 | disposition home or self-care (01) | LOC: LAB 08:30 | PROVIDERS: ATTEND Obstetrics & Gynecology | DX: O14.00 Mild to moderate pre-eclampsia, unspecified trimester (principal); O16.9 Unspecified maternal hypertension, unspecified trimester; Z3A.00 Weeks of gestation of pregnancy not specified | CPT/HCPCS: 84156 ==